=== PATIENT | male | born 1980 | race Caucasian/White ===

== ENCOUNTER 2020-01-12 22:04 | Emergency (ER) | payer BC ==
[2020-01-12 22:39] LABS: HEMATOCRIT 42.5 % (42.0-52.0); MEAN CELL VOLUME 86 fl (78-100); MEAN CORPUSCULAR HEMOGLOBIN 30 pg (27-31); MEAN CORPUSCULAR HGB CONC 35 g/dL (33-37); MEAN PLATELET VOLUME 9.9 fl (7.4-10.4); PLATELET COUNT 250 K/mm3 (130-400); RED BLOOD COUNT 4.96 M/mm3 (4.20-5.60); RED CELL DISTRIBUTION WIDTH 12.4 % (11.5-14.5); WHITE BLOOD COUNT 12.7 K/mm3 (4.8-10.8)
[2020-01-12 22:42] LABS: POTASSIUM 3.9 mmol/L (3.5-5.1)
[2020-01-12 22:43] LABS: ALBUMIN 4.7 g/dL (3.5-5.0)
[2020-01-12 22:44] LABS: CALCIUM 9.7 mg/dL (8.3-10.5)
[2020-01-12 22:46] LABS: TOTAL PROTEIN 7.9 g/dL (6.4-8.3)
[2020-01-12 22:47] LABS: TOTAL BILIRUBIN 0.6 mg/dL (0.2-1.2)
[2020-01-12 22:52] LABS: PARTIAL THROMBOPLASTIN TIME 22.2 SECONDS (21.0-32.0); PROTHROMBIN TIME 9.9 SECONDS (9.0-12.0)
[2020-01-12 22:59] LABS: TROPONIN-I 0.19 ng/mL (<0.030)
[2020-01-12 23:13] LABS: LYMPHOCYTE 6 % (20-51); MONOCYTE 6 % (3-10); NEUTROPHILS 87 % (42-75)
[2020-01-13 00:25] LABS: D-DIMER 0.88 mg/L FEU (0.15-0.50)
[2020-01-13 00:40] VITALS: BP 117/75
== END 2020-01-13 00:40 | disposition short-term general hospital (02) ==
LOC: ED 22:04
PROVIDERS: Family Medicine
DX: R07.89 Other chest pain (principal); R79.89 Other specified abnormal findings of blood chemistry; D68.51 Activated protein C resistance

== ENCOUNTER 2020-04-25 16:00 | Outpatient (RCR) | payer BC, OTHER | END 2020-04-28 | disposition home or self-care (01) | LOC: CARDREHAB | DX: I21.4 Non-ST elevation (NSTEMI) myocardial infarction (principal); Z98.61 Coronary angioplasty status; Z79.82 Long term (current) use of aspirin ==

== ENCOUNTER 2020-05-16 16:00 | Outpatient (RCR) | payer BC, OTHER | END 2020-05-21 17:00 | disposition home or self-care (01) | LOC: CARDREHAB 16:00 | DX: Z48.812 Encounter for surgical aftercare following surgery on the circulatory system (principal); Z95.5 Presence of coronary angioplasty implant and graft; I25.2 Old myocardial infarction ==